=== PATIENT | male | born 1995 | race Caucasian/White ===

== ENCOUNTER 2017-07-30 00:33 | Emergency (ER) | payer OTHER ==
[~2017-07-30] VITALS: Ht 175.3 cm; Wt 68.0 kg
[2017-07-30 00:42] VITALS: BP 118/74
== END 2017-07-30 01:03 | disposition other institution (70) ==
LOC: ED 00:33
DX: F11.10 Opioid abuse, uncomplicated (principal); F15.10 Other stimulant abuse, uncomplicated; Z71.6 Tobacco abuse counseling